=== PATIENT | female | born 1990 | race Caucasian/White ===

== ENCOUNTER 2019-12-17 05:59 | Day surgery (SDC) | payer BC ==
[~2019-12-17] VITALS: Ht 162.6 cm; Wt 47.6 kg
[~2019-12-17 05:59] MED LIST: ABILIFY2 MG PO; PEPCID40 MG PO
[2019-12-17 06:31] LABS: HCG SERUM NEGATIVE (NEGATIVE)
[2019-12-17 06:46] LABS: HEMATOCRIT 35.9 % (36.0-48.0); HEMOGLOBIN 11.7 g/dL (12-16); MCH 29.3 pg (26.0-34.0); MCHC 32.6 g/dL (31.0-37.0); MEAN PLATELET VOLUME 9.2 fL (7.4-10.4); RBC 3.99 10x6/uL (4.00-5.40); RDW 13.3 % (11.5-14.5)
[2019-12-17 06:58] VITALS: BP 111/86; Ht 162.6 cm; Wt 47.6 kg
[2019-12-17] MEDS ORDERED: HYDROCODON-ACE1 EAC7 PO (08:44)
--- NOTE | 2019-12-17 10:25 | NUR ---
PATIENT AMBULATES TO BATHROOM AND VOIDS LARGE AMOUNT IN TOILET, AMBULATES WITHOUT DIZZINESS OR UNSTEADINESS. LEFT ARM PIV DC'D WITH TIP INTACT. PATIENT DRESSING IN PERSONAL CLOTHING
== END 2019-12-17 10:40 | disposition home or self-care (01) ==
LOC: D.OPS 05:59 → D.PAN 08:00 → D.OPS 10:40
PROVIDERS: Anesthesiology; ATTEND Surgery
DX: K80.20 Calculus of gallbladder without cholecystitis without obstruction (principal)